=== PATIENT | female | born 1980 | race Caucasian/White ===

== ENCOUNTER 2025-04-11 03:12 | Emergency (ER) | payer MEDICAID ==
[~2025-04-11] VITALS: Ht 167.6 cm; Wt 73.0 kg
[2025-04-11 03:22] VITALS: O2SAT 99
[2025-04-11 04:06] LABS: BASOPHILS % 0.3 % (0.0-2.0); EOSINOPHILS % 0.3 % (0.0-5.0); HEMATOCRIT. 35.2 % (36.0-48.0); HEMOGLOBIN. 11.1 g/dL (12.0-16.0); LYMPHOCYTES % 11.5 % (20.0-50.0); MEAN PLATELET VOLUME 9.4 fl (7.4-10.4); MONOCYTES % 6.2 % (2.0-8.0); NEUTROPHILS % 81.7 % (40.0-76.0); PLATELET 296 x1000/uL (130-400); RED BLOOD CELL COUNT 5.17 mill/uL (4.2-5.4); RED CELL DISTRIBUTION WIDTH 17.2 % (11.6-14.6)
[2025-04-11 04:34] LABS: CREATININE 1.2 mg/dL (0.6-1.0); ETHANOL BLOOD < 10 mg/dL (<10); UREA NITROGEN BLOOD 11 mg/dL (9-23)
[2025-04-11 04:35] LABS: *AMPHETAMINES SCREEN URINE NEGATIVE (NEGATIVE); *BARBITURATES SCREEN URINE NEGATIVE (NEGATIVE); *BENZODIAZEPINES SCREEN URINE NEGATIVE (NEGATIVE); *COCAINE SCREEN URINE NEGATIVE (NEGATIVE); METHADONE URINE SCREEN NEGATIVE (NEGATIVE); OPIATES URINE SCREEN NEGATIVE (NEGATIVE)
[2025-04-11 04:36] LABS: ASPARTATE AMINOTRANSFERASE 14 IU/L (<34); BILIRUBIN DIRECT 0.2 mg/dL (<=3.0); BILIRUBIN TOTAL 0.6 mg/dL (0.1-1.0); CANNABINOID URINE SCREEN PRESUMPTIVE POSITIVE (NEGATIVE); ECSTASY MDMA SCREEN URINE NEGATIVE (NEGATIVE); PHENCYCLIDINE URINE SCREEN NEGATIVE (NEGATIVE); PROTEIN TOTAL 7.9 g/dL (6.0-8.3)
[2025-04-11 04:39] LABS: ADD RBC MORPHOLOGY YES
[2025-04-11 04:57] LABS: HCG SCREEN NEGATIVE
[2025-04-11 06:17] LABS: PLATELET ESTIMATE NORMAL
[2025-04-11 06:21] VITALS: BP 107/71; PULSE 86; RESP 15; TEMP 36.7; O2SAT 100
== END 2025-04-11 06:25 | disposition home or self-care (01) ==
LOC: ER 03:12
DX: F12.10 Cannabis abuse, uncomplicated (principal); F41.9 Anxiety disorder, unspecified; Z79.899 Other long term (current) drug therapy
CPT/HCPCS: 36415; 80048; 80076; 80305; 80320; 84703; 85025; 99283; A4606; G0480